=== PATIENT | male | born 1995 | race Caucasian/White ===

== ENCOUNTER 2019-03-28 22:21 | Inpatient (IN) | payer OTHER ==
[~2019-03-28] VITALS: Ht 175.3 cm; Wt 118.0 kg
--- NOTE | ~2019-03-28 | CON ---
[address] [address] CONSULTATION Name: SOULEYMANE GAYLE Room: [address] IN M.R.#: [id number] Admission: 03/29/19 Attend Phys: Aidan Nayak Discharge: 03/29/19 Date of : 89 Report #: [id number] THIS REPORT FOR: //name// CC: ADRIANNA physician/PCP Drew Milligan DATE OF SERVICE: 03/29/2019 HISTORY OF PRESENT ILLNESS: This is a 23-year-old male patient who was seen by me for seizure. The patient apparently had a grand mal seizure yesterday. He has a history of marijuana abuse in vaping. He had a seizure little more than 1 year ago and he was put on Keppra. He said he takes his Keppra on a regular basis but misses doses some time. He had a history of seizure as a child but that appeared to be febrile seizure. His Keppra dose was recently cut back to 500 b.i.d. REVIEW OF SYSTEMS: Indicate some petechial eruptions, it is not clear what the etiology in that regard is. His magnesium was high at 2.9. He is set up for sleep apnea, but does not look like he has any sleep apnea documentation. A 14-point review of system was carried out, but was otherwise unremarkable. PAST MEDICAL HISTORY: Positive for seizure. FAMILY HISTORY: Unremarkable. SOCIAL HISTORY: He does not abuse alcohol, but does smoke marijuana all the time. PHYSICAL EXAMINATION: Indicate he is alert, responsive, able to follow simple and complex command. His speech, concentration, fund of knowledge and memory is at his baseline. His cranial nerve examination appears mostly unremarkable. His strength, sensation, reflexes and tone is symmetrical. There is no meningeal sign. I could not look at the patient's fundus. His cardiac and respiratory examinations appear unremarkable. Blood pressure is 127/78, respiration is 18, pulse is 70, temperature is 98.1. LABORATORY DATA: His white count is 14.4, which is high. IMAGING: He did have a CT scan of the head, which does not show any clearcut abnormality. His MRI is pending. IMPRESSION: Breakthrough seizure. PLAN: We will increase his dose of Keppra. I will get an MRI done. I discussed with them seizure precautions he needs [place] [address] CONSULTATION Name: ALPANEHAJOSE ARMANDOSOULEYMANE Room: [address] IN [facility]#: [id number] Admission: 03/29/19 Attend Phys: Aidan Nayak Discharge: 03/29/19 Date of : [birth year] Report #: [id number] precautions include the fact that he cannot drive at least for 6 months and other precautions he needs to take and he understands. Thank you very much for this referral and we will follow this patient with you. By: 1453 [id number] Kc MD /sharlene
[~2019-03-28 22:21] MED LIST: KEFLEX500 MG PO; KEPPRA 500 MG500 M1 PO
[2019-03-28 22:22] VITALS: BP 125/69
[2019-03-28 22:57] LABS: ABSOLUTE BASOPHILS 0.1 thou/uL (0.0-0.2); ABSOLUTE EOSINOPHILS 0.1 thou/uL (0.0-0.7); ABSOLUTE MONOCYTES 0.8 thou/uL (0.0-1.2); ABSOLUTE NEUTROPHILS 9.8 thou/uL (1.6-8.1); BASOPHILS 0.4 %; HEMOGLOBIN 15.2 gm/dL (14.0-18.0); LYMPHOCYTES 21.9 %; MCH 29.2 pg (26.0-34.0); MCHC 33.8 g/dL (28.0-37.0); MCV 86.5 fL (80.0-100.0); MONOCYTES 5.9 %; MPV 8.4 fl. (7.2-11.1); NUCLEATED RBCS 0 /100WBC; PLATELET COUNT* 231 thou/uL (150-400); POLYS 70.8 %; RBC 5.21 mil/uL (4.50-6.00); WBC 13.8 thou/uL (4.0-11.0)
[2019-03-28 23:05] LABS: CALCIUM 9.4 mg/dL (8.5-10.1); CREATININE 1.2 mg/dL (0.6-1.3); POTASSIUM 3.7 mmol/L (3.5-5.1)
[2019-03-28 23:09] LABS: MAGNESIUM 2.9 mg/dL (1.8-2.4); TOTAL BILIRUBIN 0.2 mg/dL (<0.1-1.0); TOTAL PROTEIN 7.6 g/dL (6.4-8.2)
[2019-03-28 23:24] LABS: APTT 26.4 Seconds (25.0-31.3); PROTIME 10.7 Seconds (9.20-11.50)
--- NOTE | 2019-03-28 23:25 | NUR ---
CT HEAD COMPLEATED PT RETURNED TO ED
[2019-03-28 23:28] LABS: PCO2 29.1 mmHg (35.0-45.0); PO2 64.5 mmHg (75.0-100.0); pH 7.428 (7.340-7.450)
[2019-03-29] VITALS (13 sets, daily range): BP systolic 86–127; BP diastolic 37–78
[2019-03-29 00:18] LABS: URINE BILIRUBIN NEGATIVE (Negative); URINE BLOOD TRACE (Negative); URINE CLARITY CLEAR; URINE COLOR YELLOW; URINE GLUCOSE-RANDOM NEGATIVE (Negative); URINE KETONES NEGATIVE (Negative); URINE LEUKOCYTES-REFLEX NEGATIVE (Negative); URINE NITRITE-REFLEX NEGATIVE (Negative); URINE PROTEIN 1+ (Negative); URINE SPECIFIC GRAVITY >= 1.030 (1.005-1.030); URINE UROBILINOGEN 0.2 E.U./dl (0.2-1.0)
[2019-03-29 00:27] LABS: AMP/METHAMP Negative (Negative); BARBITURATES Negative (Negative); BENZODIAZEPINES Negative (Negative); COCAINE Negative (Negative); METHADONE Negative (Negative); OPIATES Negative (Negative); PCP Negative (Negative); THC POSITIVE (Negative)
--- NOTE | 2019-03-29 06:15 | NUR ---
vitals stable, afebrile. no seizure activities since arrival to icu at 0240 this am. pt a$ox4, denies pain/discomfort. seizure precautions in place, spo2>90% on RA. call light within reach. will continue monitoring.
[2019-03-29 09:32] LABS: HEMATOCRIT 42.9 % (42.0-52.0); HEMOGLOBIN 14.6 gm/dL (14.0-18.0); MCH 29.2 pg (26.0-34.0); MPV 8.5 fl. (7.2-11.1); NUCLEATED RBCS 0 /100WBC; PLATELET COUNT* 242 thou/uL (150-400); RBC 4.99 mil/uL (4.50-6.00); RDW-CV 14.2 % (10.5-14.5); WBC 14.4 thou/uL (4.0-11.0)
[2019-03-29 09:38] LABS: CALCIUM 9.3 mg/dL (8.5-10.1); POTASSIUM 4.3 mmol/L (3.5-5.1)
--- NOTE | 2019-03-29 10:00 | NUR ---
[place]: MET WITH PT, HE LIVES WITH HIS PARENTS. PT IS UNEMPLOYED. HAS SEIZURE HX AND STATES HIS PARENTS ASSIST WITH PAYING FOR HIS MONTHLY KEPPRA SCRIPT. PT PL[place] TO [place] AT [place], IS INDEPENDENT. GAVE COMMUNITY RESOURCES INCLUDIN SAFETY NET CLINICS AND SUGGESTED TRY TO F/U AT [facility] IN [place]
[2019-03-29 10:06] LABS: ABSOLUTE MONOCYTES 0.1 thou/uL (0.0-1.2); ABSOLUTE NEUTROPHILS 13.2 thou/uL (1.6-8.1); PLATELET ESTIMATE ADEQUATE
[2019-03-29 10:07] LABS: ANISOCYTOSIS 1+; POIKILOCYTOSIS 1+
--- NOTE | 2019-03-29 10:54 | EKG ---
[place] [address] ELECTROCARDIOGRAM REPORT Name: SOULEYMANE GAYLE Room: [address] ADM IN M.R.#: [id number] Admission: 03/29/19 Attend Phys: Aidan Nayak Discharge: Date of : 89 Report #: [id number] THIS REPORT FOR: //name// [facility] ED Test Date: 2019-03-28 Test Time: 22:25:06 Pat Name: SOULEYMANE GAYLE Department: Room: [address] Gender: M Sales Account Executive: ESTELA : 1995 Requested By: Drew Milligan Order Number: [id number] Augustin MD: Wali Carter Measurements Intervals Lucas Rate: 102 P: 44 NH: 178 QRS: -8 QRSD: 92 T: 15 QT: 347 QTc: 453 Interpretive Statements Sinus tachycardia No previous ECG available for comparison Electronically Signed On 03-29-2019 10:53:46 [employer]ORAL DESIGNER SALESPERSON by Wali Carter [email or web address] <ELECTRONICALLY SIGNED> By: Wali Carter MD, [facility] 03/29/19 1053 2225 2225 Wali Carter MD, FACC /EPI
--- NOTE | 2019-03-29 20:37 | NUR ---
PT. LEFT AMA AT THIS TIME. DR. JEFFERY NOTIFIED, ACCOMPANIED OUTSIDE BY THIS RN. PT. STATES HE HAS NO INSURANCE THEREFOR CANNOT AFFORD TO SPEND THE NIGHT IN THE HOSPITAL. DR. SMITH PAGED, AWAITING CALL BACK. PT. DC'D AMA AT THIS TIME.
--- NOTE | 2019-03-29 20:43 | NUR ---
NO SEIZURE ACTIVITY DURING THE WHOLE DAY. SEIZURE PRECAUTIONS IN PLACE. PT RECIEVED FROM MRI AT 1855. VSS.
== END 2019-03-29 20:35 | disposition left against medical advice (07) | DRG 101 ==
LOC: M.ERS 22:21 → M.TBA-ER 03-29 01:33 → M.ICU 03-29 01:33
PROVIDERS: Family Medicine; Personal Emergency Response Attendant; ADMIT Internal Medicine
DX: G40.909 Epilepsy, unspecified, not intractable, without status epilepticus (principal); E87.2 Acidosis; D69.2 Other nonthrombocytopenic purpura; F12.90 Cannabis use, unspecified, uncomplicated; F17.290 Nicotine dependence, other tobacco product, uncomplicated; Z53.29 Procedure and treatment not carried out because of patient's decision for other reasons; D72.0 Genetic anomalies of leukocytes; Z28.21 Immunization not carried out because of patient refusal; Z79.899 Other long term (current) drug therapy